=== PATIENT | male | born 1980 | race Caucasian/White ===

== ENCOUNTER 2016-04-22 10:41 | Observation (INO) | payer OTHER ==
[~2016-04-22] VITALS: Ht 190.5 cm; Wt 109.5 kg
[2016-04-22 10:51] VITALS: BP 169/88; PULSE 94; RESP 20; O2SAT 98
[2016-04-22 11:09] LABS: Mean Corpuscular Hemoglobin 30.8 pg (27.0-35.0); Mean Corpuscular Volume 88.7 fL (81-100)
--- NOTE | 2016-04-22 11:26 | ED.REPORT ---
HPI-Overdose/Alcohol Toxicity Date of Service Apr 22, 2016 ED Provider: Vinay Ramos PA-C 36-year-old male brought in by EMS for ingestion of [id number] mg trazodone tablets in a suicide attempt. According to EMS they were initially called because the patient appeared to have difficulty breathing. Patient is alert but unable to communicate verbally, which he indicates is at baseline. Answers yes or no questions. Admits to go ingestion of marijuana today but denies other drugs or alcohol. 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 Denies pain, chest pain, abdominal pain, vomiting, diarrhea, difficulty breathing, headache, vision changes. Nursing Notes Stated Complaint: OVERDOSE Chief Complaint: Substance Abuse Nursing Notes Reviewed: Yes Allergies: Coded Allergies: morphine (Verified Allergy, Unknown, 12/03/14) General Time Seen by Provider: 10:58 Chief Complaint Drug overdose (trazodone) Past Medical History Past Medical History Notes: PCP:Thelma Fishman MD Other medical care at [facility] Past Medical History Stroke 2015 Diverticulosis DJD Aortic Valve Reguritation Pseudo aneurysm left leg Endocarditis Past Surgical History tonsillectomy Aortic valve replacement Reports: Appendectomy Family History Noncontributory Smoking History Current Every Day Smoker Social History Alcohol Use: "Social" Drug Use: In recovery, THC Other Social History: Good social support, Local resident Occupation maintenance mechanic millwright, lives by self Ambulatory Status Independent Review of Systems Negative unless stated otherwise in history of present illness. Limited by patient's difficulty communicating. Physical Exam General: Well appearing, well developed, well nourished, no acute distress. Head: Atraumatic, normocephalic. Eyes: No scleral icterus or injection. No discharge. Vision grossly intact. ENT: Voice clear, hearing grossly intact. Respiratory: Regular rate and rhythm. Breath sounds present, clear to auscultation and equal bilaterally. Cardiovascular: Regular rate and rhythm, grade 3 holosystolic murmur. No pedal edema. Gastrointestinal: Abdomen flat and non-tender without guarding or rebound. Bowel sounds normoactive. Skin: Warm and dry. Neurological: Grossly nonfocal. Psychological: Difficult to assess. Patient opens eyes, answers yes or no questions and follows instructions. Cannot speak articulately or write. Initial Vital Signs Vital Signs (First) Date Time Temp Pulse Resp B/P Pulse Ox O2 Delivery O2 Flow Rate FiO2 04/22/16 10:51 36.7 94 20 169/88 98 Room Air Initial VS: Reviewed, Vital signs abnormal (elevated BP) Interpretation & Diagnostics Lab Results Interpretation Result Diagram: 04/22/16 1056 04/22/16 1056 Test 04/22/16 10:56 White Blood Count 8.0th/mm3 (3.8-10.1) Red Blood Count 4.96mil/mm3 (4.40-5.80) Hemoglobin 15.3g/dL (13.8-17.2) Hematocrit 44.0% (41.0-50.0) Mean Corpuscular Volume 88.7fL (81-100) Mean Corpuscular Hemoglobin 30.8pg (27.0-35.0) Mean Corpuscular Hemoglobin Concent 34.8% (32.0-37.0) Red Cell Distribution Width 13.3% (12.3-15.4) Platelet Count 315bil/L (150-400) Sodium Level 136mEq/L (134-144) Potassium Level 3.9mEq/L (3.5-5.2) Chloride Level 98mEq/L (97-108) Carbon Dioxide Level 22mmol/L (18-29) Blood Urea Nitrogen 15mg/dL (6-20) Creatinine 0.68mg/dL (0.76-1.27) Estimat Glomerular Filtration Rate 139mL/min (>59) Glucose Level 120mg/dL (60-99) Calcium Level 9.4mg/dL (8.5-10.1) Total Bilirubin 0.7mg/dL (0.0-1.2) Aspartate Amino Transf (AST/SGOT) 52U/L (0-50) Alanine Aminotransferase (ALT/SGPT) 49U/L (0-44) Alkaline Phosphatase 92U/L (25-150) Total Protein 7.7g/dL (6.4-8.4) Albumin 4.8g/dL (3.4-5.0) Salicylates Level < 3.0ug/mL (30-250) Acetaminophen Level < 15.0ug/mL Rx (10-25) Alcohol, Quantitative < 10mg/dL (0-10) ECG Interpretation Time: 10:55 Interpreted by: ED physician Normal ECG Interpretation: Normal ECG w/ rate of... (93), Normal sinus rhythm, No acute ischemic changes, Normal QRS, Normal axis, Normal intervals Rhythm / Conduction: QTc prolongation Atrium and Vent Size: Atrial enlargement - L Re-Eval/Medical Decision Med Decision/Clinical Course I discussed this case with Dr. Armenta. 36-year-old male brought in by EMS after ingesting approximately 59h307 mg trazodone tablets. History is difficult to obtain due to the patient's dysarthria, though he acknowledges yes or no questions and follows instructions. Acknowledges that he had taken 30 X1 100 mg trazodone tablets and that he intended to commit suicide. Admits THC, Denies other ingestions. Physical exam and vitals are reassuring. Labs are within acceptable limits. EKG reveals QT prolongation. Consultation with poison control suggests that somnolence is the primary concern, though QT prolongation and seizure are possible. They advised 6 hours of observation. Consulted with Dr. Fishman, PCP, to obtain further medical history and medication list. Patient has history of endocarditis with aortic valve replacement, pseudoaneurysms in his calf and a stroke in 2014. Admitted to hospitalist service for observation and social work consultation regarding suicide attempt. Consultation #1: Referral / Consult Name: Thelma Fishman MD Consulted With: Primary care physician Requested Call at: 11:21 Call Returned at: 13:45 Note: History of aortic valve endocarditis with valve replacement November 2014, pseudoaneurysm left calf, history of stroke September 2014 treated at [facility]. Med list: Methocarbamol 500 mg 2 tabs twice a day Atorvastatin 40 mg daily Toprol-XL 25 mg daily Pepcid 20 mg daily Ibuprofen 600 mg Trazodone 100 mg daily Citalopram 10 mg Cefadroxil 500 milligrams 2 tabs twice a day Cyclobenzaprine 20 mg 3 times a day as needed Aspirin 81 mg daily Consultation #2: Call Returned at: 11:06 Note: Discussed the case to [facility] poison control. They state that the primary risks of this ingestion are sleepiness and sedation, nausea and vomiting. Seizures are a possibility, as r EKG changes such as QT prolongation. They state the care is primarily supportive and suggest the drug screen, blood alcohol level, salicylate and acetaminophen level. They recommended 6 hours of observation for immediate release trazodone, 12 hours for extended release. Consultation #3: Referral / Consult Name: Pedro Stahl MD Consulted With: Hospitalist Call Returned at: 15:37 Patient Safety Manager: Accepts admit Discharge & Departure Impression: Primary Impression: Suicide attempt by drug ingestion Encounter type: initial encounter Qualified Code: T50.902A - Poisoning by unspecified drugs, medicaments and biological substances, intentional self-harm , initial encounter Disposition: ADMITTED TO HOSPITAL Referrals: OTHER,PHYSICIAN (PCP) Govind Brumfield MD (Family) EDSupervising Provider for APC: Gianni Armenta MD copies to: Govind Brumfield MD; Thelma Fishman MD, Seth PA-C Apr 22, 2016 11:26
[2016-04-22 14:37] VITALS: BP 147/76; PULSE 89; RESP 20; O2SAT 97
[2016-04-22] MEDS ORDERED: Alum-Mag Hydrox-Simeth 30 mL Suspension PO PRN (15:35)
[2016-04-22] MEDS ORDERED: Ondansetron 2 mg/mL 2 mL Inj IVPUSH PRN (15:35)
--- NOTE | 2016-04-22 16:10 | NUR ---
admit from ER pt is brought up from ER and transfers himself into [place] [facility] bed pt denies pain. pt does seem to be word searching/mumbling tele started
[2016-04-22 16:16] VITALS: BP 135/88; PULSE 89; RESP 16; O2SAT 98
[2016-04-22 16:30] VITALS: PULSE 93
--- NOTE | 2016-04-22 17:10 | PCM.HPMED ---
Subjective Date of Service Apr 22, 2016 Primary Provider: Admitting Physician: Pedro Stahl MD Primary Care Physician: Michael [facility] Attending Physician: Pedro Stahl MD Chief Complaint: alleged suicidal attempt with OD History of Present Illness: 36yo M w/ hx of stroke in September 2014 non-verbal at baseline, hx of aortic valve endocarditis with valve replacement November 2014 p/w reported suicidal attempt. pt was not able to communicate verbally, information was obtained from ED provider. According to EMS, patient was brought in for ingestion of 30 pills of 100mg trazodone, upon questioning, pt admitted that he took trazodone, more or less 30pills. When asked this was intentional, patient admitted he wanted to kill himself, wanted to sleep with pills. pt denied headache, chest pain, dizziness, palpitations, difficulty breathing In the emergency room, VSS BP 160s, 94, 20, 98% on RA, afebrile, labs were unremarkable, EKG showed sinus tachycardia, QTc>518 from 450s in . ROS: pt denied fever, chills, diarrhea, nausea, vomiting, abdominal pain, Allergies Coded Allergies: morphine (Verified Allergy, Unknown, 12/03/14) Home Medications Med list: Methocarbamol 500 mg 2 tabs twice a day Atorvastatin 40 mg daily Toprol-XL 25 mg daily Pepcid 20 mg daily Ibuprofen 600 mg Trazodone 100 mg daily Citalopram 10 mg Cefadroxil 500 milligrams 2 tabs twice a day Cyclobenzaprine 20 mg 3 times a day as needed Aspirin 81 mg daily PMH Past Medical History Diverticulosis DJD Pseudo aneurysm left leg History of aortic valve endocarditis with valve replacement November 2014, pseudoaneurysm left calf, history of stroke September 2014 treated at [facility]. Past Surgical History tonsillectomy Reports: Appendectomy Family History unable to communicate Smoking History Current Every Day Smoker Social History socially etoh use, [employer] Occupation maintenance mechanic 2nd shift, lives by self Social History Hx Alcohol Use: Yes ("monthly") Hx Substance Use: Yes (marijuana-today) Smoking Status: Current Every Day Smoker Exam Vital Signs Vital Sign - Last Date Time Temp Pulse Resp B/P Pulse Ox O2 Delivery O2 Flow Rate FiO2 04/22/16 14:38 36.9 89 20 142/81 99 Room Air Lab and Diagnostics Result Diagram: 04/22/16 1056 04/22/16 1056 Assessment & Plan 36-year-old male with mood disorder on multiple psychiatric medicine presenting with presumed suicidal attempt, took trazodone 30 pills acute, active #presumed suicidal attempt with Drug overdose, POA, took 30xTrazodone 100 mg -ED provider spoke to poison control, recommended observation for 6 hours, supportive treatment -Telemetry, We will monitor serial EKG, given prolonged QT -Patient seemed at baseline mental status, alert and likely oriented, no focal neurologic deficit, -keep 1:1 for now given suicidal attempt, seizure precaution, -keep Mg>2, K>4 given cardiac hx, abnormal EKG #Mood disorder, suicidal attempt -hold all of the psychiatry medicine as below for now Trazodone 100 mg daily Citalopram 10 mg Cyclobenzaprine 20 mg 3 times a day as neede Methocarbamol 500 mg 2 tabs twice a day -will get SW/psychiatry eval tomorrow for possible inpt transfer chronic, stable hx of aortic valve endocarditis s/p AVR, continue Atorvastatin 40 mg daily Aspirin 81 mg d, hold Toprol-XL 25 mg qd given QT prolongation, likely resume tomorrow GERD/PUD, continue Pepcid 20 mg daily will verify these medicine for indiction and restart soon. Cefadroxil 500 milligrams 2 tabs twice a day Ibuprofen 600 mg Patient is admitted under observation status with expectation that she will be discharged within 24-48 hours, DVT prophylaxis LMWH Diet regular Full code Time spent 35 minutes Pedro Stahl MD Apr 22, 2016 16:04
[2016-04-22 20:00] VITALS: PULSE 96
[2016-04-22 20:37] VITALS: BP 109/66; PULSE 90; RESP 18; O2SAT 95
[2016-04-23] VITALS (7 sets, daily range): BP systolic 111–125; BP diastolic 66–78; PULSE 47–83; RESP 14–18; O2SAT 94–99
--- NOTE | 2016-04-23 05:56 | NUR ---
Uneventful Night: Pt rested intermittently through the night. No complaints of pain or discomfort. Denies SOB or n/v. No suicidal ideation or active plans. Sitter at bedside. Call light within reach. Cooperative with care.
[2016-04-23 07:50] LABS: BASOPHILS % (AUTO) 0.6 % (0-3); EOSINOPHILS % (AUTO) 3.6 % (0-5); MONOCYTES % (AUTO) 9.5 % (4-12); Mean Corpuscular Hemoglobin 30.5 pg (27.0-35.0); Mean Corpuscular Volume 90.9 fL (81-100); Platelet Count 285 bil/L (150-400)
[2016-04-23 08:13] LABS: Magnesium 2.1 mg/dL (1.6-2.6)
[2016-04-23] MEDS ORDERED: MeTOProlol XL 25 mg ER24 Tablet PO SCH (10:25)
--- NOTE | 2016-04-23 11:11 | NUR ---
Social Work-screening: Data:EMR Reviewed. Pt is a 36 y/o male who was admitted on 04/22/16 for medication overdose per H&P. MD has ordered psychiatry consultation. SW called mental health unit and informed Unit assistance Nicolasa that SW will be deferring assessment to psychiatry per MD request. Unit assistance to pass information along to MD. SW will continue to follow. Plan:Psychiatry to see pt. SW will continue to follow. GARRET Alicea
--- NOTE | 2016-04-23 16:01 | CONS ---
[address] [address] CONSULTATION REPORT PATIENT: JUANITO SAMUEL : 1980 MR#: [id number] ADMIT: 04/22/2016 JOB ID: [id number] DATE OF SERVICE: 04/23/2016 IDENTIFICATION: The patient is a 36-year-old, white male, currently living independently in an apartment. He is on disability, as he had a stroke approximately two years ago. He lives in [place]. REASON FOR ADMISSION: Client took an overdose of 30 trazodone. He called EMS and was brought in. HOSPITAL COURSE: I was asked to consult with the patient for a suicide assessment. He had recently attempted suicide by overdosing on trazodone. Initially, his EKG QT time was over 500. Now, however, it has returned to normal. His vital signs are stable and medically, he is ready for discharge. He has an expressive aphasia but is able to nod yes or no. He described having multiple symptoms of depression that led up to giving up in a suicide attempt. He reported poor sleep, poor energy, poor interest and suicidal ideation. He states he has been drinking alcohol, and this also makes it worse. At present, he has no signs of emotional liability. He is showing good judgment and insight. He denied psychiatric review of systems for edyta, psychosis, or substance abuse other than the alcohol. MEDICATIONS: 1. Methocarbamol. 2. Atorvastatin. 3. Toprol-XL 25 daily. 4. Pepcid. 5. Ibuprofen. 6. Trazodone 100 daily. 7. Celexa 10 daily. 8. Aspirin 81 daily. PAST MEDICAL HISTORY: Stroke and treated at [facility] in September 2014, a pseudoaneurysm of left calf, history of aortic valve endocarditis with valve replacement in 2015, degenerative joint disease, diverticulitis. PAST PSYCHIATRIC HISTORY: None. PSYCHOSOCIAL HISTORY: It was very difficult for me to get a psychosocial history based on the limits of my assessment time and the fact that he could only say yes and no questions. PHYSICAL EXAMINATION: Vital signs: 111/79, pulse 65, respirations 16, afebrile. Client lying down in a hospital bed in no acute distress. MENTAL STATUS: Client neatly dressed. Good eye contact. Behavior was calm. Attitude was cooperative and pleasant. Speech normal rate and rhythm. Mood okay. Affect flat, restricted. Thought process, client is able to relate a coherent history, although with difficulty, as he has an expressive aphasia. Thought content, consistently denied suicidal ideation, plan, or intent. He is beginning to future plan how he can get a cigarette and would like to get out of the hospital soon as possible. We talked about a safety plan, and he is agreeable to going to a counselor and his outpatient physician. Client is alert and oriented to person, place and date. His immediate, short and long-term memory were intact. Insight and judgment were fair. Impulse control highly contained yet rigid. Has a difficult time handling impulses of anger and sadness. Reality testing intact. Competence to handle current stressors appears appropriate if he has assistance. IMPRESSION: The patient is a 36-year-old, white male struggling with recovery from a stroke in September 2014. He has been drinking alcohol and it sounds like he got increasingly despondent. He is taking low-dose antidepressant medications, including Celexa 10 mg a day and trazodone 100 mg h.s. He is not in counseling with anybody but is open for outpatient counseling. 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 AXIS II Defer. AXIS III 1. Expressive aphasia. 2. Recent overdose on #30 trazodone. AXIS IV Severe. AXIS V Current Global Assessment of Functioning equal to 45. PLAN: 1 Recommend client be restarted on Celexa at 20 mg per day. 2 Recommend he refrain from recreational drugs and alcohol while taking psychiatric medications. 3 Would discontinue trazodone. 4 Would rec Social Work team connect him with outpatient psychotherapy and medication prescriber prior to discharge. 5 Patient no longer requires a sitter any longer 6 As soon as the dispo followup is scheduled, he would be clear for discharge. ANGELLA
--- NOTE | 2016-04-23 16:09 | NUR ---
spiritual care: pt request brief visit. pt in good spirits, showed his heart scar--not sure what communication he meant by this--pleasant and polite manner.
--- NOTE | 2016-04-23 16:30 | NUR ---
Social Work Note: D/A: Psych eval completed, see note when available. Note not in the computer. Information gathered from Psychiatry from Nursing. SW met with Pt to discuss safety plan. The Pt is not endorsing SI at this time and agrees to be able to keep self safe at home with follow up at [facility] for walk in appointment. Consent form signed and faxed to [facility]. Access eligibility form completed online. The Pt agreed for SW to follow up with his roommate Vasile [phone]. Vasile reports that he is able to provide the Pt transportation home and help keep self until his walk in appointment tomorrow. Vasile reports that he is not able to provide transportation for the Pt to his walk in appointment tomorrow. He stated that he has another friend that may be willing to help out with transportation but will not know until 6pm tonight. ALDO called friend back and provided phone number for ED Factory Superintendent to determine if transportation is available tomorrow for the appointment. P: Per Nursing, Psychiatry has cleared Pt for home. Note not dictated at this time. Safety plan created, friend Vasile to stay with Pt and manage medications. Pt currently not endorsing SI/HI. Pt registered for walk in appointment tomorrow at [facility]. Vasile to call back ED SW after 6 to determine if transportation is available for appointment tomorrow to [facility] from friend. Darlene Cooper MSW Bit Gatherer GARRET Alicea
--- NOTE | 2016-04-23 17:10 | PCM.DIMED ---
Discharge Instructions Date of Service Apr 23, 2016 Dates of Hospitalization Apr 22, 2016 at 15:29 Discharge Diagnosis Discharge Diagnosis Suicidal attempt with drug overdose Medication Instructions Please take these medicine as before Methocarbamol 500 mg 2 tabs twice a day Atorvastatin 40 mg daily Toprol-XL 25 mg daily Pepcid 20 mg daily Ibuprofen 600 mg Citalopram 20 mg increased from 10mg Cefadroxil 500 milligrams 2 tabs twice a day Cyclobenzaprine 20 mg 3 times a day as needed Aspirin 81 mg daily please note that Trazodone 100 mg daily was stopped given your overdose Diet No restrictions Activity No restrictions Patient Instructions Your hospitalized as you took too many pills for suicidal attempt you were seen by psychiatrist, cleared for discharge. Please follow-up [facility] as instructed. Follow-up plan Please follow with [facility] tomorrow as scheduled. Please follow-up with your doctor in 2 weeks, Thelma Fishman MD Follow-up Provider: Thelma Fishman MD Follow-up with PCP in: 2 weeks Pedro Stahl MD Apr 23, 2016 17:10
[2016-04-23] MEDS ORDERED: CITA20TA PO ×2 (17:11→17:16)
--- NOTE | 2016-04-23 18:06 | NUR ---
Uneventful Pt has been cooperative with care and staff, laying in bed most of the day. Ambulated with sitter around hallway x 2. Pt currently pending discharge, awaiting confirmation of transportation to [facility] appointment tomorrow, from in ED. Pt currently resting comfortably, with friends at bedside.
--- NOTE | 2016-04-23 19:35 | NUR ---
Social work-COntinued discharge planning D/A: ED GRIT BLASTER received call from [facility] [place] GRIT BLASTER requesting assistance in coordinating pt's ride home after their shift had ended. Per GRIT BLASTER pt's friend Vasile had agreed to pick pt up and supervise him, however was unable to take him to his appointment tomorrow. Pt's friend was in the process of attempting to arrange this and if successful was to inform ED GRIT BLASTER so that discharge arrangements could be coordinated. If no ride was available to get pt to his appointment tomorrow, then pt was not to be discharged until the morning. GRIT BLASTER received call from pt's friend, Govind, at 1930, reporting that unfortunately he was unable to arrange for pt to have a ride to his appointment and pt will therefore have to remain in the hospital overnight. GRIT BLASTER contacted pt's RN Roseann Pérez to update on plan of care. P: Pt to remain in the hospital overnight and discharge tomorrow to his [facility] health intake appointment. Emery Luna MSW
[2016-04-24 01:24] VITALS: BP 115/74; PULSE 55; RESP 18; O2SAT 96
--- NOTE | 2016-04-24 05:39 | NUR ---
Uneventful Night: Pt rested with eyes closed through the night with no complaints of pain or discomfort. Denies N/V. Sitter at bedside. Call light within reach. Pleasant and cooperative with care.
[2016-04-24 08:25] VITALS: BP 124/77; PULSE 68; RESP 18; O2SAT 99
--- NOTE | 2016-04-24 08:25 | NUR ---
Arranged follow up appointment for patient at [facility] for 102904/26/16 with
--- NOTE | 2016-04-24 10:15 | NUR ---
Discharge Patient ambulated from unit accompanied by staff. Patient departing to [facility] Prior to discharge, patient denied pain, shortness of breath, GI discomfort or nausea. During hospitalization, patient has displayed: appropriate behavior without any signs of violence to self or others, no tremors, adequate respiratory function on room air, good nutritional intake and his cognition appears to be at baseline. Discharge instructions/medications reviewed with patient prior to discharge. All questions addressed. Patient belongings, discharge instructions and prescription in hand.
--- NOTE | 2016-04-24 10:32 | NUR ---
Discharge Social Work Discharge: D/A: Pt was admitted on 04/22/2016 for medication overdose, suicide attempt as per EMR. Pysch eval completed on 04/23/2016, see note. Psych is recommending for the Pt to be restarted on Celexa, discontinuing Trazodone, refraining from recreational drugs and alcohol while taking psychiatric medications, and connecting with outpatient psychotherapy and a medication prescriber, feels pt safe to return home. [facility] Access Consent for Assessment and [facility] online access form completed on 04/23/2016 for walk-in appointment on 04/24/2016. The Pt signed COURTNEY on 04/24/2016, H&P and psych note faxed to [facility]. [facility] also provided with to support POCs for the Pt, Govind the Pt's roommate [phone] and Gail [phone]. ALDO spoke with Govind on 04/23/2016 regarding the Pt's current state and discharge plan. ALDO left message on [place] phone with updated plan for the Pt to be transported to [facility] this morning via cab. Gail informed of the Pt's current state and discharge plan on 04/24/2016.Taxi set up through [facility] [employer] for 1015. ALDO met with pt at bedside, pt is not endorsing SI/HI at this time. Pt agreeable to safety plan of discharging to [facility] for walk in appointment this morning. Pts roommate and friend Govind willing to assist with medications and provide supervision at home . The Pt provided with the Crisis Line number, the MH resource list, and two bus passes. The Pt agrees that he is able access the bus line and is able to get himself home safe after his walk-in appointment. He agrees that he feels safe at home. UR specialist arranged PCP appointment for 04/26/[address] Birch [facility]. Pt aware of appointment and is aware that pt will be expected at this appointment. has written RX to restart Pt's Celexa. P: Pt is ready to discharge home today. Psych eval completed on 04/23/2016, pt is safe to return home, recommending medication change and connection with outpatient psychotherapy and medication prescriber. The Pt to be discharged to [facility] walk in appointment at 10am via cab, all access forms completed and his H&P and Psych notes have been faxed. The Pt provided with the Crisis Line number, MH resource list, and two bus passes. The Pt agrees that he is able to access the bus line and is able to get himself home safe after his appointment. The Pt is not endorsing SI/HI and agrees that he feels safe at home. Pt's roommate and friend Gail updated and agreeable to plan. Darlene Cooper, DETAIL ASSEMBLER Clinical Science Consultant [address] MSW
--- NOTE | 2016-04-24 14:12 | PCM.DC.MED ---
Discharge Summary Date of Service Apr 24, 2016 Dates of Hospitalization Date of Hospital Admission Apr 22, 2016 at 15:29 Date of Discharge: Apr 24, 2016 Providers: Admitting Physician: Pedro Perla MD Primary Care Physician: [facility] Attending Physician: Pedro Perla MD Diagnosis at Time of Discharge Diagnosis at Time of Discharge 1presumed suicidal attempt with Drug overdose 2Mood disorder chronic, stable 3hx of aortic valve endocarditis s/p AVR 4GERD/PUD Consultations Psychiatric service Procedures ECG 12 Lead intitial EKG showed sinus tachycardia, QTc>518 from 450s in . repeat EKG showed normalized QTc to 470s, sinus rhythm Brief History H&P performed by on 04/22 36yo M w/ hx of stroke in September 2014 non-verbal at baseline, hx of aortic valve endocarditis with valve replacement November 2014 p/w reported suicidal attempt. pt was not able to communicate verbally, information was obtained from ED provider. According to EMS, patient was brought in for ingestion of 30 pills of 100mg trazodone, upon questioning, pt admitted that he took trazodone, more or less 30pills. When asked this was intentional, patient admitted he wanted to kill himself, wanted to sleep with pills. pt denied headache, chest pain, dizziness, palpitations, difficulty breathing In the emergency room, VSS BP 160s, 94, 20, 98% on RA, afebrile, labs were unremarkable, EKG showed sinus tachycardia, QTc>518 from 450s in . ROS: pt denied fever, chills, diarrhea, nausea, vomiting, abdominal pain, Hospital Course 36-year-old male with mood disorder on multiple psychiatric medicine presenting with presumed suicidal attempt, took trazodone 30 pills 1presumed suicidal attempt with Drug overdose, POA, took 30xTrazodone 100 mg, initial EKG shows prolonged QT>500, but patient remained alert and oriented, seemed at baseline mental status, no focal neurologic deficit noted.Patient was monitored on telemetry, no hydroureter blocks or pauses observed. pt was kept on :1 given suicidal attempt. Patient was evaluated by psychiatry Dr. Hameed, deemed safe for d/c with [id number] as patient was not on any psychiatric medicine recently, was not seeing any counselor. Pt was arranged to see outpatient counselor upon d/c. 2Mood disorder, suicidal attempt -held all of the psychiatry medicine as below Trazodone 100 mg daily Citalopram 10 mg Cyclobenzaprine 20 mg 3 times a day as neede Methocarbamol 500 mg 2 tabs twice a day d/otilia with Citalopram 20 mg qd per chronic, stable 3hx of aortic valve endocarditis s/p AVR, continued Atorvastatin 40 mg daily Aspirin 81 mg d, held Toprol-XL 25 mg qd given QT prolongation 4GERD/PUD, continued Pepcid 20 mg daily Exam Vital Signs (Last) Date Time Temp Pulse Resp B/P Pulse Ox O2 Delivery O2 Flow Rate FiO2 04/24/16 08:25 68 18 124/77 99 Room Air 04/24/16 01:24 36.9 Exam NAD, comfortably laying down on the bed no JVD, MMM, no LAD RRR, nl s1, s2 no mrg CTAB, no w,c S,ND,NT,normoactive BS+ warm, no edema, pulses 2/2 Test 04/22/16 10:56 04/23/16 07:38 Salicylates Level < 3.0ug/mL (30-250) Acetaminophen Level < 15.0ug/mL Rx (10-25) Alcohol, Quantitative < 10mg/dL (0-10) White Blood Count 5.4th/mm3 (3.8-10.1) Red Blood Count 4.30mil/mm3 (4.40-5.80) Hemoglobin 13.1g/dL (13.8-17.2) Hematocrit 39.1% (41.0-50.0) Mean Corpuscular Volume 90.9fL (81-100) Mean Corpuscular Hemoglobin 30.5pg (27.0-35.0) Mean Corpuscular Hemoglobin Concent 33.5% (32.0-37.0) Red Cell Distribution Width 13.2% (12.3-15.4) Platelet Count 285bil/L (150-400) Neutrophils (%) (Auto) 59.0% (40-74) Lymphocytes (%) (Auto) 26.9% (14-46) Monocytes (%) (Auto) 9.5% (4-12) Eosinophils (%) (Auto) 3.6% (0-5) Basophils (%) (Auto) 0.6% (0-3) Sodium Level 140mEq/L (134-144) Potassium Level 3.9mEq/L (3.5-5.2) Chloride Level 104mEq/L (97-108) Carbon Dioxide Level 23mmol/L (18-29) Blood Urea Nitrogen 7mg/dL (6-20) Creatinine 0.79mg/dL (0.76-1.27) Estimat Glomerular Filtration Rate 117mL/min (>59) Glucose Level 110mg/dL (60-99) Calcium Level 9.0mg/dL (8.5-10.1) Phosphorus Level 3.0mg/dL (2.5-4.9) Magnesium Level 2.1mg/dL (1.6-2.6) Total Bilirubin 0.3mg/dL (0.0-1.2) Aspartate Amino Transf (AST/SGOT) 30U/L (0-50) Alanine Aminotransferase (ALT/SGPT) 35U/L (0-44) Alkaline Phosphatase 71U/L (25-150) Total Protein 6.5g/dL (6.4-8.4) Albumin 4.1g/dL (3.4-5.0) Discharge Medications Discharge Medications Citalopram Hydrobromide (Celexa) 20 Mg Tablet 20 MG PO DAILY Prescribed by: PEDRO PERLA MD Additional med instructions Please take these medicine as before Methocarbamol 500 mg 2 tabs twice a day Atorvastatin 40 mg daily Toprol-XL 25 mg daily Pepcid 20 mg daily Ibuprofen 600 mg Citalopram 20 mg increased from 10mg Cefadroxil 500 milligrams 2 tabs twice a day Cyclobenzaprine 20 mg 3 times a day as needed Aspirin 81 mg daily please note that Trazodone 100 mg daily was stopped given your overdose Followup Plan Disposition: Home Follow-up plan Please follow with [facility] tomorrow as scheduled. Please follow-up with your doctor in 2 weeks, Thelma Fishman MD Discharge Diet: No restrictions Discharge Activity: No restrictions Patient Instructions Your hospitalized as you took too many pills for suicidal attempt you were seen by psychiatrist, cleared for discharge. Please follow-up [facility] as instructed. Follow-up Provider: Thelma Fishman MD Follow-up with PCP in: 2 weeks Time spent 65 minutes Pedro Perla MD Apr 24, 2016 12:58
--- NOTE | 2016-05-07 16:04 | PCM.PNMED ---
Subjective Date of Service Apr 23, 2016 Subjective pt was stable overnight denied any sx EKG this AM showed normalized QT Exam Vital Signs Vital Sign - Last Date Time Temp Pulse Resp B/P Pulse Ox O2 Delivery O2 Flow Rate FiO2 04/24/16 08:25 68 18 124/77 99 Room Air 04/24/16 01:24 36.9 Intake and Output 04/23/16 04/23/16 04/24/16 Cumulative From/Thru 15:00 23:00 07:00 04/22/16 10:51 - 04/24/16 06:58 Intake Total 3450 ml 200 ml 5886 ml Output Total 1175 ml 1350 ml 3025 ml Balance 2275 ml -1150 ml 2861 ml Intake Oral 3450 ml 200 ml 5886 ml Output Urine Total 1175 ml 1350 ml 3025 ml # Voids 1 2 # Bowel Movements 1 1 Exam NAD, comfortably laying down on the bed no JVD, MMM, no LAD RRR, nl s1, s2 no mrg CTAB, no w,c S,ND,NT,normoactive BS+ warm, no edema, pulses 2/2 IVs and Medications Medications Reviewed: Medications were reviewed in detail Lab and Diagnostics Result Diagram: 04/23/1673704/23/16737 Assessment & Plan 36-year-old male with mood disorder on multiple psychiatric medicine presenting with presumed suicidal attempt, took trazodone 30 pills acute, active #presumed suicidal attempt with Drug overdose, POA, took 30xTrazodone 100 mg -ED provider spoke to poison control, recommended observation for 6 hours, supportive treatment -Telemetry, We will monitor serial EKG, given prolonged QT -Patient seemed at baseline mental status, alert and likely oriented, no focal neurologic deficit, -keep 1:1 for now given suicidal attempt, seizure precaution, -keep Mg>2, K>4 given cardiac hx, abnormal EKG #Mood disorder, suicidal attempt -hold all of the psychiatry medicine as below for now Trazodone 100 mg daily Citalopram 10 mg Cyclobenzaprine 20 mg 3 times a day as neede Methocarbamol 500 mg 2 tabs twice a day -will get SW/psychiatry eval tomorrow for possible inpt transfer chronic, stable hx of aortic valve endocarditis s/p AVR, continue Atorvastatin 40 mg daily Aspirin 81 mg d, hold Toprol-XL 25 mg qd given QT prolongation, likely resume tomorrow GERD/PUD, continue Pepcid 20 mg daily will verify these medicine for indiction and restart soon. Cefadroxil 500 milligrams 2 tabs twice a day Ibuprofen 600 mg Patient is admitted under observation status with expectation that she will be discharged within 24-48 hours, DVT prophylaxis LMWH Diet regular Full code VTE Mechanical Devices: Intermittant Pneumatic CD Time spent 35min Pedro Stahl MD Apr 24, 2016 12:22
== END 2016-04-24 10:13 | disposition home or self-care (01) ==
LOC: SED 10:41 → EDUNIT# 10:41 → EDBD 10:41 → MPC 15:29
PROVIDERS: ADMIT Internal Medicine; ATTEND Internal Medicine
DX: T43.212A Poisoning by selective serotonin and norepinephrine reuptake inhibitors, intentional self-harm, initial encounter (principal); F39 Unspecified mood [affective] disorder; Y92.9 Unspecified place or not applicable; K21.9 Gastro-esophageal reflux disease without esophagitis; K27.9 Peptic ulcer, site unspecified, unspecified as acute or chronic, without hemorrhage or perforation; Z86.79 Personal history of other diseases of the circulatory system; F12.90 Cannabis use, unspecified, uncomplicated; Z86.73 Personal history of transient ischemic attack (TIA), and cerebral infarction without residual deficits; F17.210 Nicotine dependence, cigarettes, uncomplicated; M19.90 Unspecified osteoarthritis, unspecified site; Z79.82 Long term (current) use of aspirin
CPT/HCPCS: 36415; 80053; 82948; 83735; 84100; 85025; 85027; 93005; 99285; G0378; G0480; J1650